=== PATIENT | female | born 1945 | race African-American/Black ===

== ENCOUNTER 2017-12-13 11:33 | Emergency (ER) | payer OTHER ==
[~2017-12-13] VITALS: Ht 162.6 cm; Wt 77.1 kg
[~2017-12-13 11:33] MED LIST: ASA-EC81 MG PO; ATORVASTATIN CA20 MG; HYZAAR 100/25 T1 TAB PO; IMDUR30 MG PO; METFORMIN HCL1000 MG PO
== END 2017-12-13 16:49 | disposition home or self-care (01) ==
LOC: ER 11:33
DX: J90 Pleural effusion, not elsewhere classified (principal)

== ENCOUNTER 2017-12-16 05:55 | Day surgery (SDC) | payer OTHER | END 2017-12-16 16:40 | disposition home or self-care (01) | LOC: CIR.AMB 05:55 | DX: S52.531D Colles' fracture of right radius, subsequent encounter for closed fracture with routine healing (principal) | CPT/HCPCS: 25609; 20902; C1776 ==

== ENCOUNTER 2018-01-08 15:13 | Outpatient (CLI) | payer OTHER | END 2018-01-08 15:26 | disposition home or self-care (01) | LOC: RAD 501 15:13 | DX: M79.641 Pain in right hand (principal) ==

== ENCOUNTER 2018-02-12 13:13 | Outpatient (CLI) | payer OTHER | END 2018-02-12 13:25 | disposition home or self-care (01) | LOC: RAD 501 13:13 | DX: S52.531D Colles' fracture of right radius, subsequent encounter for closed fracture with routine healing (principal) ==

== ENCOUNTER 2018-03-05 13:46 | Outpatient (CLI) | payer OTHER | END 2018-03-05 16:16 | disposition home or self-care (01) | LOC: RAD 501 13:46 | DX: S52.531D Colles' fracture of right radius, subsequent encounter for closed fracture with routine healing (principal) ==

== ENCOUNTER 2018-05-28 13:10 | Outpatient (CLI) | payer OTHER | END 2018-05-28 13:21 | disposition home or self-care (01) | LOC: RAD 501 13:10 | DX: S52.531D Colles' fracture of right radius, subsequent encounter for closed fracture with routine healing (principal) ==

== ENCOUNTER 2018-06-01 09:23 | Outpatient (CLI) | payer OTHER | END 2018-06-01 09:36 | disposition home or self-care (01) | LOC: RAD 09:23 | DX: M25.521 Pain in right elbow (principal); M24.531 Contracture, right wrist; M25.532 Pain in left wrist ==

== ENCOUNTER 2018-06-05 11:50 | Outpatient (CLI) | payer OTHER | END 2018-06-05 12:00 | disposition home or self-care (01) | LOC: NUCLEAR 11:50 | DX: M81.0 Age-related osteoporosis without current pathological fracture (principal) ==

== ENCOUNTER → 2018-08-28 08:47 | Outpatient (CLI) | payer OTHER | END | disposition home or self-care (01) | LOC: LAB 08:47 | DX: D64.89 Other specified anemias (principal); E88.89 Other specified metabolic disorders; D68.8 Other specified coagulation defects; N39.0 Urinary tract infection, site not specified; Z22.322 Carrier or suspected carrier of Methicillin resistant Staphylococcus aureus; M24.541 Contracture, right hand; Z76.89 Persons encountering health services in other specified circumstances ==

== ENCOUNTER 2018-09-18 09:55 | Day surgery (SDC) | payer OTHER ==
[~2018-09-18 09:55] MED LIST changes: +MULTIPLE VITAM1 EACH PO
== END 2018-09-18 18:10 | disposition home or self-care (01) ==
LOC: CIR.AMB 09:55
DX: M24.541 Contracture, right hand (principal)